=== PATIENT | female | born 1940 | race Caucasian/White ===

== ENCOUNTER → 2021-10-25 | Outpatient (CLI) | payer MEDICARE ==
[~2021-10-25] MED LIST: ACET-78 PO; ACHD5005 PO; BISA10SU12 PR; CARB1TAB19 PO; DICL100G18 TOP; ENOX40DI8 SC; MELO15TA39; PANT40TA52 PO; POLY17PO54 PO; SENN-20 PO; SUCR1TAB PO; TOLTA4 PO; TRM50T PO
== END ==
LOC: LABNPT 12:00
DX: N39.0 Urinary tract infection, site not specified (principal)
CPT/HCPCS: 87088

== ENCOUNTER 2022-08-29 08:13 | Emergency (ER) | payer MEDICARE, MEDICAID ==
[~2022-08-29] VITALS: Ht 154.9 cm; Wt 46.2 kg
[~2022-08-29 08:13] MED LIST changes: -CARB1TAB19 PO; +CARB1TAB32 PO
--- NOTE | 2022-08-29 08:49 | ED Lower Extremity ---
General Chief Complaint: Lower Extremity Stated Complaint: FOOT SWELLING Nursing Triage Note: PT TO RM 5 BY WC WITH COMPLAINT OF LEFT FOOT SWELLING. STAFF STATES SWELLING WAS DISCOVERED THIS MORNING. UNKNOWN CAUSE OF SWELLING. Source: patient Exam Limitations: no limitations History of Present Illness Date Seen by Provider: Aug 29, 2022 Time Seen by Provider: 08:41 Initial Comments 82yo female from [facility] with concern for left foot discoloration. She has a history of dementia, is chronically wheelchair bound. Staff this morning noticed what they thought was swelling and discoloration to the foot. No reported trauma (she arrives with the director of neurology. No fevers, vomiting or change in appetite. no other concern for illness or injury. ROS unobtainable from the patient due to her dementia (she believes she was at work and "the ceiling caved in" Onset: this morning Pain/Injury Location: left foot Method of Injury: unknown Allergies and Home Medications Allergies Coded Allergies: No Known Drug Allergies (Unverified , 12/10/15) Patient Home Medication List Home Medication List Reviewed: Yes Acetaminophen (Acetaminophen) 500 Mg Tablet, 500 MG PO Q4H PRN for MILD PAIN Prescribed by: MYRIAM SAEED on 12/27/151911 Carbidopa/Levodopa (Carbidopa-Levodopa 25-100 Tab) 1 Each Tablet, 2 TAB PO TID, (Reported) Entered as Reported by: FATOU ANDERS on 12/11/15 0014 Diclofenac Sodium (Voltaren) 100 Gm Gel..gram., 0 GM TOP QID Prescribed by: MYRIAM SAEED on 12/27/151911 Meloxicam (Meloxicam) 15 Mg Tablet, (Reported) Entered as Reported by: ROSI COTTO on 03/10/16 0944 Pantoprazole Sodium (Pantoprazole Sodium) 40 Mg Tablet.dr, 40 MG PO DAILY@0700 Prescribed by: MYRIAM SAEED on 12/27/151911 Sennosides/Docusate Sodium (Senna-Time S Tablet) 1 Each Tablet, 2 EA PO BID Prescribed by: MYRIAM SAEED on 12/27/151911 Sucralfate (Sucralfate) 1 Gm Tablet, 1 GM PO ACHS Prescribed by: MYRIAM SAEED on 12/27/151911 Tolterodine Tartrate (Detrol LA) 4 Mg Cap, 4 MG PO HS Prescribed by: MYRIAM SAEED on 12/27/151911 Review of Systems Constitutional: see HPI unobtainable due to dementia Past Diitfgk-Ubvfye-Ctftxe Hx Patient Social History Tobacco Use?: No Use of E-Cig and/or Vaping dev: No Substance use?: No Alcohol Use?: No Pt feels they are or have been: No Immunizations Up To Date Tetanus Booster (TDap): Unknown PED Vaccines UTD: No Past Medical History Orthopedic, Tubal Ligation Currently Using CPAP: No Currently Using BIPAP: No Parkinson's Disease Reproductive Disorders: No Female Reproductive Disorders: Denies Sexually Transmitted Disease: No HIV/AIDS: No Chronic Constipation Fractures Cataract Loss of Vision: Denies Hearing Impairment: Denies, Hard of Hearing Adverse Reaction/Blood Tranf: No Family Medical History Arthritis 19 MOTHER Hypertension 19 MOTHER Physical Exam Vital Signs Vital Signs - First Documented 08/29/22 08:15 Temp 35.4 Pulse 81 Resp 14 B/P (MAP) 158/77 (104) Pulse Ox 98 O2 Delivery Room Air Capillary Refill : Less Than 3 Seconds Height, Weight, BMI Height: 5'1" Weight: 100lbs. oz. 45.356431wz; 19.00 BMI Method:Stated General Appearance: no apparent distress, thin HEENT: PERRL/EOMI Cardiovascular: regular rate, rhythm, systolic murmur (loud farsh systolic murmur heard throughout the precordium) Respiratory: chest non-tender, lungs clear, no respiratory distress, no accessory muscle use Gastrointestinal: non tender, soft Hips: bilateral hip non-tender, bilateral hip no evidence of injury Legs: bilateral leg non-tender, bilateral leg normal inspection, bilateral leg no evidence of injury Knees: bilateral knee non-tender, bilateral knee normal inspection, bilateral knee normal range of motion, bilateral knee no evidence of injury Ankles: bilateral ankle non-tender, bilateral ankle normal inspection, bilater al ankle normal range of motion, bilateral ankle no evidence of injury Feet: left foot ecchymosis (over the dorsum of the left foot. no erythema; no prox Lymphangitic streaking), left foot swelling (mild), left foot other (unable to palpate PT pulse - DP is weakly palpable) Neurologic/Tendon: normal motor functions Neurologic/Psychiatric: no motor/sensory deficits, alert, normal mood/affect Skin: normal color, warm/dry, other ((see extremity exam)) Progress/Results/Core Measures Results/Orders My Orders Orders - RANDA WINTERS MD Foot, Left, 3 Views (08/29/22 08:48) Us Left Low Ext Arterial [id number] (08/29/22 09:10) Vital Signs/I&O 08/29/22 08:15 Temp 35.4 Pulse 81 Resp 14 B/P (MAP) 158/77 (104) Pulse Ox 98 O2 Delivery Room Air Blood Pressure Mean: 104 Diagnostic Imaging Diagonstic Imaging: Xray Comments [facility] [place], [place] NAME[facility] REC#: [id number] PT STATUS: REG ER : 1940 PHYSICIAN: RANDA WINTERS MD ADMIT DATE: 08/29/22/ER Draft Date of Exam:08/29/22 FOOT, LEFT, 3 VIEWS Indication: Inability to move, discoloration and swelling. Findings: The bones are severely osteoporotic, diffuse soft tissue swelling is noted however this is less pronounced than on the comparison of 12/25/2015. 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 There is severe joint space narrowing and likely at least some degree of fusion or ankylosis across the calcaneocuboid joint also unchanged. No gas or opaque foreign body no acute appearing abnormality found. Impression: Soft tissue swelling but noted improved from prior severe bony demineralization limits sensitivity for detecting nondisplaced fractures, chronic pes planus and bony ankylosis of the hindfoot stable. No acute bony abnormality apparent. Dictated on workstation # [id number] Dict: 08/29/22904 Trans: 08/29/22908 CV [id number] Interpreted by: ANA CASTANEDA Electronically signed by: [place] [facility]LEY[facility]. [place], [place] NAME: MIRANDAMARCO A RIVER[facility] REC#: [id number] PT STATUS: REG ER : 1940 PHYSICIAN: RANDA WINTERS MD ADMIT DATE: 08/29/22/ER Draft Date of Exam:08/29/22 US LEFT LOW EXT ARTERIAL [id number] Indication: Lower extremity discoloration and coolness. The common femoral, the superficial femoral and the popliteal arteries all patent and showed a mildly diminished resistance with bi-phasicity to the waveform and diffuse echogenic atherosclerotic plaques. There was no focal velocity acceleration or deceleration to suggest a hemodynamically significant focal stenosis. Antegrade flow within the dorsalis pedis and posterior tibials present with weakly monophasic pulsatility and continuation of the diffuse calcified plaque. IMPRESSION: Patient has extensive diffuse atherosclerotic calcified plaque throughout the left leg however no arterial segmental occlusion or focal stenosis was revealed. Dictated on workstation # [id number] Dict: 08/29/22 1003 Trans: 08/29/22 1006 [facility] [id number] Interpreted by: ANA CASTANEDA Electronically signed by: Departure Impression Primary Impression: Swelling of left foot Disposition: 01 HOME, SELF-CARE Condition: Stable Departure-Patient Inst. Decision time for Depature: 10:27 Referrals: ROHITH HENSON MD (PCP/Family) Primary Care Physician Patient Instructions: Swelling Add. Discharge Instructions: Watch her foot for increasing swelling and redness. Monitor appetite and mental status changes and for fever. If worsening, follow up with primary care or the Emergency Department. Copy Copies To 1: ROHITH HENSON MD, KATHRYN M MD Aug 29, 2022 08:49
--- NOTE | 2022-08-29 09:10 | Diagnostic Imaging Report ---
Indication: Inability to move, discoloration and swelling. Findings: The bones are severely osteoporotic, diffuse soft tissue swelling is noted however this is less pronounced than on the comparison of 12/25/2015. 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 There is severe joint space narrowing and likely at least some degree of fusion or ankylosis across the calcaneocuboid joint also unchanged. No gas or opaque foreign body no acute appearing abnormality found. Impression: Soft tissue swelling but noted improved from prior severe bony demineralization limits sensitivity for detecting nondisplaced fractures, chronic pes planus and bony ankylosis of the hindfoot stable. No acute bony abnormality apparent. Dictated by: Dictated on workstation # [id number]
--- NOTE | 2022-08-29 10:06 | Diagnostic Imaging Report ---
Indication: Lower extremity discoloration and coolness. The common femoral, the superficial femoral and the popliteal arteries all patent and showed a mildly diminished resistance with bi-phasicity to the waveform and diffuse echogenic atherosclerotic plaques. There was no focal velocity acceleration or deceleration to suggest a hemodynamically significant focal stenosis. Antegrade flow within the dorsalis pedis and posterior tibials present with weakly monophasic pulsatility and continuation of the diffuse calcified plaque. IMPRESSION: Patient has extensive diffuse atherosclerotic calcified plaque throughout the left leg however no arterial segmental occlusion or focal stenosis was revealed. Dictated by: Dictated on workstation # [id number]
[2022-08-29 10:46] VITALS: BP 158/77
== END 2022-08-29 10:44 | disposition home or self-care (01) ==
LOC: EDUNIT# 08:13 → ER 08:14
DX: S90.32XA Contusion of left foot, initial encounter (principal); X58.XXXA Exposure to other specified factors, initial encounter
CPT/HCPCS: 73630; 93926